=== PATIENT | female | born 1965 | race Two or more races ===

== ENCOUNTER 2024-04-25 13:00 | Outpatient (RCR) | payer OTHER, SELFPAY | END 2024-05-08 23:59 | disposition home or self-care (01) | LOC: CPTX 13:00 | PROVIDERS: PCP Orthopaedic Surgery Orthopaedic Surgery of the Spine; Referring Provider Orthopaedic Surgery Orthopaedic Surgery of the Spine; Visit Provider Orthopaedic Surgery Orthopaedic Surgery of the Spine | DX: Z53.9 Procedure and treatment not carried out, unspecified reason (principal) ==

== ENCOUNTER → 2024-05-11 | Outpatient (CLI) | payer OTHER, SELFPAY ==
--- NOTE | 2024-05-11 10:30 | XR_ITS ---
Exam: MRI knee without contrast, left complete Date and time of exam: May 11, 1999 2533 hours INDICATIONS: Generalized knee pain joint locking clicking instability one year after falling down stairs with injury to the knee Technique: Multiple axial, coronal, and sagittal sections on the knee have been obtained. T2-Weighted sagittal, fat-suppressed images, TR 3,500, TE 62, T2 weighted coronal fat-saturated images, TR 3,500, TE 62 Proton density sagittal sections, TR 1800, TE 31. T-1 weighted coronal images, TR 524, TE 13.0 Findings: Medial meniscus anterior horn intact. Medial meniscus, body is intact. Posterior horn medial meniscus intact. Lateral meniscus anterior horn horizontal linear tear with perihilar meniscus septated cyst, 12 mm Lateral meniscus, body is intact Posterior horn lateral meniscus is intact Anterior cruciate ligament mild sprain Posterior cruciate ligament appears intact. Knee effusion is small. Quadriceps and patellar tendons appear intact. There is no evidence of tendinosis. Inflammatory change or fracture of Hoffa's fat pad is not seen. Medial patellar facet demonstrates moderate thinning. Lateral patellar facet cartilage demonstrates moderate thinning. Trochlear cartilage demonstrates moderate thinning. Marrow signal adequate. Medial collateral ligament appears intact. No meniscocapsular separation is seen. Illiotibial band and fibular collateral ligament are intact. Biceps femoris tendons appear intact. Medial femoral condylar articular cartilage demonstrates moderate thinning. Lateral femoral condylar articular cartilage demonstratesmoderate thinning. Tibial plateau cartilage demonstrates moderate thinning. Impression: Mild sprain anterior cruciate ligament Horizontal linear tear anterior horn lateral meniscus with adjacent meniscus cyst
== END | disposition home or self-care (01) ==
LOC: SMRI 05-17 10:07
PROVIDERS: PCP Internal Medicine; Referring Provider Orthopaedic Surgery; Visit Provider Orthopaedic Surgery
DX: S83.512A Sprain of anterior cruciate ligament of left knee, initial encounter (principal); S83.282A Other tear of lateral meniscus, current injury, left knee, initial encounter; X58.XXXA Exposure to other specified factors, initial encounter
CPT/HCPCS: 73721

== ENCOUNTER → 2024-06-08 | Outpatient (CLI) | payer OTHER, SELFPAY ==
--- NOTE | 2024-06-08 15:37 | XR_ITS ---
Examination: Shoulder,right, 3 views Technique: Shoulder AP internal rotation, AP external rotation, Y view shoulder, 3 views Exam date and time :June 08, 2024 1550 hours INDICATIONS: Shoulder pain beginning 2 months ago. FINDINGS: Moderate narrowing glenohumeral joint No fracture or shoulder dislocation Moderate osteoarthritis acromioclavicular joint No calcific tendinitis IMPRESSION: Moderate narrowing glenohumeral joint
--- NOTE | 2024-06-08 15:37 | XR_ITS ---
EXAMINATION: Cervical spine, 5 views Technique: Cervical spine AP, AP odontoid, lateral, bilateral obliques, 5 views Exam date and time: June 08, 2024 1550 hours INDICATIONS: Neck pain with decreased range of motion 2 months FINDINGS: Adequate alignment cervical vertebral bodies Moderate disc narrowing C4-C5, advanced disc narrowing C5-C6 Mild to moderate bilateral neural foraminal stenosis at these levels The odontoid is intact No cervical fracture IMPRESSION: Moderate degenerative disc disease C4-C5 Advanced degenerative disc disease C5-C6
== END | disposition home or self-care (01) ==
PROVIDERS: PCP Internal Medicine; Referring Provider Orthopaedic Surgery; Visit Provider Orthopaedic Surgery
DX: M50.322 Other cervical disc degeneration at C5-C6 level (principal); M25.811 Other specified joint disorders, right shoulder
CPT/HCPCS: 72050; 73030

== ENCOUNTER 2024-06-14 12:09 | Emergency (ER) | payer OTHER, SELFPAY ==
--- NOTE | 2024-06-14 | XR_ITS ---
Examination: MRI brain without intravenous contrast. Date and time of exam: June 14, 2024 1432 hours INDICATIONS: Dizziness episodes altered mental status lethargy beginning 2 weeks ago Technique: Multiple axial and sagittal images of the brain obtained. Siemens high-resolution 1.5 Zully short bore scanners utilized. Sagittal sections, T1-weighted, TR 500, TE 14, are performed. Axial sections proton-density and T2-weighted have been obtained. Inversion recovery axial images, TR 9, 260, TE 111, TI 2500. Diffusion weighted images, axial sections, TR 4800, TE 128, B value 1000 Axial sections, ADC map, TR 4800, TE 128 Findings: Enlargement of the sella turcica is not present. The optic chiasm and infundibular are not remarkable. Prepontine and interpeduncular cisterns are not enlarged. There is no localized enlargement of the medulla or lora. Fourth ventricle and cerebellar tonsils appear normal in position. No subacute area of hemorrhage density is seen. Mass in the cerebellopontine angle region is not evident. Globes symmetrical. Orbital musculature including medial lateral rectus muscles do not exhibit abnormality. Diffusion-weighted images demonstrate no focus of restricted diffusion. Increased white matter signal not seen Mass effect upon the ventricular system is not identified. Impression: Negative for acute hemorrhage mass effect or midline shift No acute infarct No MR findings diagnostic for demyelinating disease
[2024-06-14 12:34] VITALS: BP 137/87; PULSE 94; RESP 18; TEMP 36.7; O2SAT 98
[2024-06-14 12:35] VITALS: BMI 31.6
--- NOTE | 2024-06-14 13:15 | PD.EDWEAK ---
ED Weakness RME/HPI General Chief complaint: Weakness Stated complaint: High blood pressure, feels in a fog Time Seen by Provider: 06/14/24 12:39 Arrival date/time: 06/14/24 12:09 RME / HPI RME / HPI Narrative: 58-year-old male patient with significant history of hypothyroidism, came in for evaluation regarding not feeling well. According to the patient she has been having worsening dizziness, not feeling well, feels in a fog for the last 2 weeks, after patient had a stress test and received the medication. She was started on Medrol pack which the patient finished few days ago. Initially she felt better however for the last few days it got worse. 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 Patient denies any slurred speech denies any upper or lower extremity weakness patient is ambulatory. Denies any trauma or or head injury. Denies any fever or sore throat or cough. Denies any abdominal pain denies any dysuria. Related Data Home Medications ?Medication ?Instructions ?Recorded ?Confirmed levothyroxine 100 mcg tablet 100 mg PO QDAY 07/20/19 07/20/19 pseudoephedrine HCl 30 mg tablet 30 mg PO BID 07/20/19 07/20/19 venlafaxine 150 mg 150 mg PO QDAY 07/20/19 07/20/19 capsule,extended release 24 hr Allergies Allergy/AdvReac Type Severity Reaction Status Date / Time latex Allergy Severe Difficulty Verified 06/14/24 12:13 Breathing acetaminophen (From Vicodin) Allergy Intermediate Hives Verified 06/14/24 12:13 hydrocodone (From Vicodin) Allergy Intermediate Hives Verified 06/14/24 12:13 tramadol Allergy Intermediate Hives Verified 06/14/24 12:13 metronidazole (From Flagyl) Allergy Unknown Verified 06/14/24 12:13 technetium-99m Allergy Verified 06/14/24 12:13 Review of Systems Review of Systems Narrative Review of Systems: Review of system reviewed and within normal limits except mentioned in HPI ED Exam Narrative Physical exam: VITAL SIGNS: Reviewed. GENERAL APPEARANCE: Alert and interactive, follows commands, no acute distress, HEAD AND FACE: Non-traumatic. ENT: PERRL, pink conjunctivitis, eyelid no trauma, Mucous membrane moist. NECK: Supple, nontender, no nuchal rigidity. CHEST: No tenderness, no crepitus, no paradoxical movement, no retractions. LUNGS: Clear, well ventilated, symmetric, no rales, no wheezing, no ronchi, no stridor, good breath sounds bilaterally. HEART: Regular rate, regular rhythm, no murmur, no gallops. ABDOMEN: Soft, positive bowel sounds, nondistended, no guarding, nontender, no rebound, no masses, RECTAL: Deferred. GENITAL: Deferred. NEUROLOGICAL: Gross motor function intact sensory function intact, Appropriate for age. MUSCULOSKELETAL: low back nontender, full range of motion. EXTREMITIES: Nontender, full range of motion. SKIN: Color pink, dry, no rash, no lacerations, no abrasions, no contusions. LYMPHATICS: Deferred. Course Quality Measures none Orders Category Date Time Status Bedside COVID-19 Antigen Test NOW Care 06/14/24 13:13 Active Bedside Influenza A&B Antigen Test NOW Care 06/14/24 13:13 Completed MRI Screening NOW Care 06/14/24 13:15 Active MRI Screening NOW Care 06/14/24 13:15 Active MR head/brain wo con Stat Exams 06/14/24 Completed Ammonia Stat Lab 06/14/24 13:31 Completed CBC [CBC] Stat Lab 06/14/24 13:31 Completed CMP [Comprehensive Metabolic Panel] Stat Lab 06/14/24 13:31 Completed Monika-Garcia Virus Ab Panel* Stat Lab 06/14/24 Ordered Free T4 (Free Thyroxine) Stat Lab 06/14/24 13:31 Completed RSV [Respiratory Syncytial Virus Ag] Stat Lab 06/14/24 13:13 Ordered TSH [Thyroid Stimulating Hormone] Stat Lab 06/14/24 13:31 Completed UA, C/S IF [Urinalysis, C/S if Indicated] Stat Lab 06/14/24 14:17 Completed Vital Signs Vital signs: Vital Signs Temperature 98.1 F 06/14/24 12:34 Pulse Rate 94 06/14/24 12:34 Respiratory Rate 18 06/14/24 12:34 Blood Pressure 137/87 H 06/14/24 12:34 Pulse Oximetry (%) 98 06/14/24 12:34 Oxygen Delivery Method Room Air 06/14/24 12:34 Weakness MDM Narrative MDM Narrative:: 58-year-old male patient with significant history of hypothyroidism, came in for evaluation regarding not feeling well. According to the patient she has been having worsening dizziness, not feeling well, feels in a fog for the last 2 weeks, after patient had a stress test and received the medication. She was started on Medrol pack which the patient finished few days ago. Initially she felt better however for the last few days it got worse. 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 Patient denies any slurred speech denies any upper or lower extremity weakness patient is ambulatory. Denies any trauma or or head injury. Denies any fever or sore throat or cough. Denies any abdominal pain denies any dysuria. Patient's workup today all came back normal including MRI of the brain which is normal also results discussed with the patient. Patient appears nontoxic and hemodynamically stable. Patient discharged home and instructed to follow-up with primary care provider in 24 to 48 hours. Instructed to return to the emergency department immediately if worsening of symptoms Patient data External records reviewed:: None Clinical information provided by:: none Social determinants that could affect healthcare access:: none Patient has the following chronic illnesses:: Hypothyroidism How is presenting disease/condition affected by chronic disease/condition?: uneffected by Evaluation data The following diagnostics were reviewed and interpreted by me:: lab results and radiology exam(s) Lab and/or radiology exams considered but not ordered:: None Interpretation Summary: See results in [facility] Medications / Prescriptions Medications or Prescriptions considered but not ordered:: None Medication administrations:: None Consultations Consultation(s) initiated? (list below): No Diagnosis Weakness Differential Diagnosis: dehydration and other (Dizziness, generalized weakness) Most likely diagnosis given after review of the tests above:: Dizziness, generalized weakness Admission Indicated Admission indicated?: not indicated Admission Request Was there a request for admission?: No Disposition Plan Disposition Plan: Discharge Discharge Attestation Discharge Attestation: The patient was given an opportunity to ask questions and understood the discharge instructions. Discharge instructions specifically effects, indications for sooner follow up or return to the emergency department, and the expected course of current diagnosis. Patient condition: Stable Discharge Plan Plan Patient Disposition: HOME (Self Care) Disposition Comment: stable Prescriptions/Referrals Prescriptions/Med Rec: No Action venlafaxine 150 mg capsule,extended release 24hr 150 mg PO QDAY Patient Comments: TK 1 C PO D levothyroxine 100 mcg Tablet 100 mg PO QDAY pseudoephedrine HCl 30 mg Tablet 30 mg PO BID Problem List Clinical Impression: Dizziness, Weakness generalized Patient/Caregiver Discharge Instructions Discharge Activity: activity as tolerated Education Materials: ED Weakness (Uncertain Cause) Additional Instructions: Thank you for the opportunity for serving you today. You are stable for discharged . You are advised to: Follow-up with your PCP in 1 to 2 days Return to ED for worsening of symptoms Print Language: Indonesian Stand Alone Forms: Faith Award Info., Patient Portal Info Letter PA/OCCUPATIONAL REHABILITATION AIDE Supervising Physician PA/SAGRARIO Supervising Physician: MD Izabel
[2024-06-14 14:02] LABS: Basophils % (Auto) 0 % (0-2.5); Eosinophils # (Auto) 0.1 Thou/mm3 (0.0-0.5); Eosinophils % (Auto) 1 % (0-10); Hematocrit 44.7 % (36.0-46.0); Hemoglobin 14.9 g/dL (12.0-16.0); Immature Granulocytes % (Auto) 0 % (0-0); Immature Granulocytes Auto 0.03 Thou/mm3 (0.00-0.00); Lymphocytes # (Auto) 2.6 Thou/mm3 (1.0-4.8); Lymphocytes % (Auto) 33 % (10-50); Mean Corpuscular HGB Conc 33.3 g/dl (31.0-37.0); Mean Corpuscular Hemoglobin 31.6 pg (25.0-35.0); Mean Corpuscular Volume 95 fL (80-100); Monocytes # (Auto) 0.6 Thou/mm3 (0.0-0.8); Monocytes % (Auto) 8 % (0-12); Neutrophils # (Auto) 4.6 Thou/mm3 (1.8-7.7); Neutrophils % (Auto) 58 % (37-80); Nucleated Red Blood Cell % 0 /100 WBC (0); Platelet Count 254 Thou/mm3 (140-440); RDW Standard Deviation 47.5 fL (36.4-46.3); Red Blood Count 4.71 Miln/mm3 (4.00-5.20); White Blood Count 7.9 Thou/mm3 (3.6-11.0)
[2024-06-14 14:21] LABS: Ammonia < 10 uMol/L (11-32)
[2024-06-14 14:24] LABS: Alanine Aminotransferase 23 U/L (10-49); Albumin, Serum 4.6 gm/dL (3.5-5.0); Albumin/Globulin Ratio 1.9 (1.2-2.2); Alkaline Phosphatase 80 U/L (46-116); Anion Gap 8 (7-16); Aspartate Amino Transferase 15 U/L (0-34); BUN/Creatinine Ratio 21 Ratio (12-20); Bilirubin,Total 0.4 mg/dL (0.3-1.2); Blood Urea Nitrogen 17 mg/dL (9-23); Calcium 9.6 mg/dL (8.3-10.6); Calcium (Corrected) 9.6 mg/dL (8.5-10.1); Carbon Dioxide 31.2 mMol/L (20.0-31.0); Chloride 102 mMol/L (98-107); Creatinine (Component) 0.8 mg/dL (0.6-1.3); Estimated Creatinine Clearance 76.2 mL/min (>60); Free T4 (Free Thyroxine) 1.55 ng/dL (0.89-1.76); Globulin 2.4 gm/dL (2.3-3.5); Glucose 90 mg/dL (74-106); Osmolality,Calculated 282 (275-295); Sodium 141 mMol/L (136-145); Thyroid Stimulating Hormone 3.02 uIU/mL (0.55-4.78); eGFR > 60 See Note
[2024-06-14 14:49] LABS: Collection Type, Urine Clean Catch; RBC,Urine 0 /hpf (0-3)
[2024-06-14 15:06] LABS: Bilirubin,Urine Negative (Negative); Blood,Urine Negative (Negative); Clarity,Urine Turbid (Clear/Hazy); Color,Urine Yellow (Lt Yel-Yel); Culture Indicated,Urine Not Indicated; Glucose, Urine Negative (Negative); Ketones,Urine Negative (Negative); Leukocyte Esterase,Urine Positive (Negative); Nitrite,Urine Negative (Negative); PH,Urine 6.5 (5.0-7.0); Protein,Urine Trace (Neg - Trace); Specific Gravity,Urine 1.022 (1.001-1.035); Squamous Epithelial Cell,Urine 5 /hpf (0-5); Urobilinogen,Urine Negative mg/dL (0.0-1.0); WBC,Urine < 1 /hpf (0-5)
[2024-06-18 17:51] LABS: EBV VCA Ab (IgG) >750.00 U/mL
[2024-06-19 06:55] LABS: EBV Ab Interpretation RECENT
== END 2024-06-14 16:13 | disposition home or self-care (01) ==
LOC: SERX 16:43
PROVIDERS: Nurse Practitioner Family; Emergency Provider Emergency Medicine
DX: R42 Dizziness and giddiness (principal); R53.1 Weakness; E03.9 Hypothyroidism, unspecified
CPT/HCPCS: 36415; 70551; 80053; 81001; 82140; 84439; 84443; 85025; 86664; 86665; 87400; 87634; 87811; 99284